=== PATIENT | female | born 1995 | race Caucasian/White ===

== ENCOUNTER 2017-11-06 09:10 | Emergency (ER) | payer MEDICAID ==
[~2017-11-06] VITALS: Ht 162.6 cm; Wt 77.0 kg
[~2017-11-06 09:10] MED LIST: ALBU8.5H8 IH
[2017-11-06 09:11] VITALS: BP 114/64
[2017-11-06] MEDS ORDERED: ACYC400T PO (09:35)
== END 2017-11-06 09:53 | disposition home or self-care (01) ==
LOC: ER 09:10
DX: A60.00 Herpesviral infection of urogenital system, unspecified (principal); Z98.890 Other specified postprocedural states
CPT/HCPCS: 99283